=== PATIENT | female | born 1995 | race Caucasian/White ===

== ENCOUNTER → 2021-08-15 09:01 | Outpatient (CLI) | payer OTHER, SELFPAY ==
[2021-08-15 09:32] LABS: COVID19 -Nasal RAPID Negative (Negative)
== END ==
PROVIDERS: PCP Ophthalmology; Visit Provider Obstetrics & Gynecology
DX: Z01.812 Encounter for preprocedural laboratory examination (principal); Z20.822 Contact with and (suspected) exposure to COVID-19
CPT/HCPCS: 87635

== ENCOUNTER 2021-08-18 12:27 | Day surgery (SDC) | payer OTHER, MEDICAID, SELFPAY ==
[2021-08-11 15:18] VITALS: BMI 24.1
--- NOTE | 2021-08-15 09:08 | PM.GYNHP.1 ---
History of Present Illness History of Present Illness Narrative: Alejandrina Timmons is a 26-year-old , LMP 06/20/2021 who presents today to discuss sterilization.? The patient has used both oral contraceptives and progestin secreting IUDs in the past for contraception but has decided that she absolutely positively does not wish to have anymore children and she has become uncomfortable with the idea of having synthetic hormones in her body as a form of contraception.? Other forms of contraception were discussed but she is firm in her decision for sterilization.? She understands that laparoscopic sterilization via bilateral salpingectomy is a procedure which will permanently and irreversibly make it impossible for her to bear children without the benefit of a assisted repeat technology.? After extended discussion, the patient executed a S-687 form, consent for sterilization on 06/29/2021.? She is scheduled for laparoscopic bilateral salpingectomy on the afternoon of and presents today for her scheduled surgery.. [facility] Medical History Multiple sclerosis Surgical History History of appendectomy History of tonsillectomy and adenoidectomy Social History household members: spouse and children Smoking Status: Current every day smoker Meds Home Medications and Allergies Home Medications Medication Instructions Recorded Confirmed Type acetaminophen 325 mg capsule 325 mg PO Q4-6H PRN 04/01/18 08/11/21 History (Tylenol) Allergies Allergy/AdvReac Type Severity Reaction Status Date / Time latex [LATEX] Allergy Intermediate swelling Verified 06/29/21 09:11 of hands when put latex gloves on. Sulfa (Sulfonamide Allergy Intermediate rash and Verified 06/29/21 09:11 Antibiotics) body turs [SULFA (SULFONAMIDE beet red ANTIBIOTICS)] sumatriptan [SUMATRIPTAN] AdvReac Mild head feels Verified 06/29/21 09:11 like it is burning Exam Const General: cooperative, healthy appearing and well developed Nutritional Appearance: average body habitus Orientation: alert and oriented x3 HENMT Head: normal to inspection, atraumatic and abrasion Ears: hearing grossly normal bilaterally Nose: external nose normal Face and sinus: normal facial exam Mouth: oral mucosae normal Teeth and gingiva: dentition normal Throat: posterior oropharynx normal Eyes General: appearance normal, both eyes and all related structures Conjunctivae: conjunctivae normal Sclera: sclerae normal Cornea: corneas normal EOM: EOM intact bilaterally Neck Neck: normal visual inspection, supple and No lymphadenopathy Thyroid: thyroid normal Resp Effort & Inspection: normal respiratory effort and able to speak in complete sentences Auscultation: clear to auscultation bilaterally Cardio Rate: regular rate Rhythm: regular rhythm Heart Sounds: S1 normal, S2 normal and no murmurs GI Inspection: normal to inspection Palpation: soft and no hepatosplenomegaly Auscultation: normal bowel sounds General: other (Deferred) Skin General: no rashes or lesions noted Neuro General: patient alert, patient awake and patient oriented x3 Extrem General: no calf tenderness Psych Appearance: grossly normal Mental Status: mental status grossly normal Speech and Movement: speech and movement normal Mood: congruent mood Affect: normal affect Attitude: cooperative Thought Process: normal Thought Content: normal Judgment: judgment good Assessment & Plan Assessment and plan (1) Request for sterilization: Status: Acute Plan: The patient was counseled regarding alternatives, risks, benefits, and potential complications associated with laparoscopic bilateral salpingectomy.? She understands that this procedure is one which will result in her permanently and irreversibly being unable to bear children without the benefit of assisted reproductive technology.? Furthermore she understands that this procedure can fail approximately 2 times out of a 1000 procedures and should failure occur the risk of ectopic is significant.? With full understanding of the above, she desires to proceed and a written consent was executed, signed, and witnessed 07/15/2021. Assessment & Plan narrative: The patient was counseled regarding alternatives, risks, benefits, and potential complications associated with laparoscopic bilateral salpingectomy.? She understands that this procedure is 1 which will result in her permanently and irreversibly being unable to bear children without the benefit of assisted reproductive technology.? Furthermore she understands that this procedure can fail approximately 2 times out of a 1000 procedures and should failure occur the risk of ectopic is significant.? With full understanding of the above, she desires to proceed and a written consent was executed, signed, and witnessed 08/15/2021. Time Spent With Patient Time with patient: less than 30 minutes Critical Care time: I spent a total of [] minutes of critical care time on this patient's care today; this time is exclusive of procedural time.
--- NOTE | 2021-08-18 | PATH_ITS ---
[facility] Accession Number: [id number] . 01 Material submitted: . fallopian tube - BILATERAL FALLOPIAN TUBES . 02 Diagnosis: Bilateral Fallopian Tubes, Bilateral Salpingectomy: Fallopian tubes x2; negative for epithelial atypia or malignancy. [facility] 08/22/2021 1434 Local . 02 Electronically signed: . Violeta Rios MD, Pathologist NPI- [id number] . 01 Gross description: . The specimen is received in formalin, labeled bilateral fallopian tubes and consists of two fallopian tube measuring 6.0 cm in length by 1.0 cm in diameter and 6.5 cm in length by 0.9 cm in diameter. The serosa is pink-purple and smooth. Sectioning reveals a page-pink mucosa and a stellate lumen measuring 0.4 cm in diameter. Machine Cage Maker sections of each fallopian tube are submitted, to include the en face margin (blue), central cross sections, and bisected fimbria, in cassettes A1-A2. ([id number]) /V 08/19/2021 1514 Local . 02 Pathologist provided ICD-10: Z30.2 . 02 CPT . 041892 Performed at: 01 [facility] [address], [place], [place] [id number] MD Jagdish Elliott MD Phone: [phone] Performed at: 02 [facility] [address] [place], [place] [id number] MD Judi Steward MD Phone: [phone]
[2021-08-18 13:13] VITALS: BP 105/72; PULSE 74; RESP 16; TEMP 36.3; O2SAT 100; BMI 24.1
--- NOTE | 2021-08-18 13:27 | PM.PREOP ---
Pre-operative Note COVID-19 COVID-19 status: Negative Result date/Date tested (Pos, Neg/Pending): 08/17/21 Interval Note History & Physical reviewed/Exam performed by Physician: Yes Changes to H&P: No
[2021-08-18] MEDS: LACTATED RINGERS 1,000 ML 42 ML IV (13:28)
--- NOTE | 2021-08-18 14:44 | SUR.OPER ---
Lithotomy on padded OR bed, head on pillow, arms secured on padded arm boards at <90 degrees abduction. Legs secured in padded yellow fins stirrups.
[2021-08-18] MEDS: BUPIVACAINE 0.5% (PF) 30 ML, EPINEPHrine 0.15 MG INJ (14:51)
[2021-08-18 15:10] VITALS: BP 109/59; PULSE 74; RESP 20; TEMP 36.1; O2SAT 100
[2021-08-18 15:15] VITALS: BP 121/76; PULSE 72; RESP 18; O2SAT 100
--- NOTE | 2021-08-18 15:17 | P.OP_ITS ---
Operative Date/Time/Diagnoses Date of procedure: 08/18/21 Time of procedure: 14:45 Pre-op diagnosis: Request for sterilization Post-op diagnosis: same Procedure & Clinicians Procedure: Procedures Operation Date: 08/18/21 14:30 Actual Procedure Side Surgeon p Laparoscopic Salpingectomy Bilateral Peter Nino MD Indications: Alejandrina Timmons is a 26-year-old , LMP 06/20/2021 who presents today to discuss sterilization.? The patient has used both oral contraceptives and progestin secreting IUDs in the past for contraception but has decided that she absolutely positively does not wish to have anymore children and she has become uncomfortable with the idea of having synthetic hormones in her body as a form of contraception.? Other forms of contraception were discussed but she is firm in her decision for sterilization.? She understands that laparoscopic sterilization via bilateral salpingectomy is a procedure which will permanently and irreversibly make it impossible for her to bear children without the benefit of a assisted repeat technology.? After extended discussion, the patient executed a S-687 form, consent for sterilization on 06/29/2021.? She is scheduled for laparoscopic bilateral salpingectomy on the afternoon of and presents today for her scheduled surgery. Surgeon: Peter Nino Anesthesia Type: General Operative Notes Findings: Normal pelvis. The upper abdomen and appendix are normal to laparoscopic visualization. Closure Type: primary Specimen(s): left tube and right tube Estimated blood loss (mL): 5 Blood products transfused: none Procedure in detail: With the patient under satisfactory general anesthesia in the modified dorsal lithotomy position, the perineum and abdomen were prepped and draped in the usual fashion for laparoscopic bilateral salpingectomy. A pre-surgical safety time-out was then taken in accordance with [facility] Main OR protocols. No uterine manipulator was inserted. The inferior margin of the umbilicus was then infiltrated with approximately 5 cc 0.5% Marcaine. A 1 cm vertical umbilical incision was then made through which a Veress needle was used to insufflate the abdomen with carbon dioxide. Once insufflated a 5 mm trocar and sleeve were placed through that incision and using a 5 mm scope the abdomen was visualized. Two additional 5 mm ports in the left and right mid quadrant were inserted in the usual fashion after infiltration of the tissues and skin with 0.5% Marcaine. Using in 3 puncture technique the pelvis and abdomen were thoroughly visualized and photographically documented. The right fallopian tube was then grasped at the fimbria and elevated. The PK bipolar device was then used to sequentially coagulate and divide the mesosalpinx from the if embryo very could to the cornua. Once the cornua was reached the base of the fallopian tube was coagulated and divided. That tube was then removed through one of the 5 mm ports and submitted as a pathologic specimen. Attention was then turned to the left side and the distal tube was grasped with a grasping forcep. The fimbriae ovarica was then coagulated and divided with the PK device and the process was continued all the way across the mesosalpinx on the left to the c ornua. Once the cornu was reached the base of the tube was then coagulated and divided. The left tube was then removed through one of the 5 mm ports and submitted with the other tube is a aggregate pathologic specimen. The pelvis was inspected and there was no evidence of bleeding or other abnormalities. The pneumoperitoneum was then vented and the ports removed. Each port incision was then closed with 4-0 Monocryl using inverted interrupted stitches and appropriate dressings were applied. The patient was then awakened and transferred to the PACU for a period of observation in recovery having tolerated the procedure well. There were no complications experienced an estimated blood loss was approximately 5 cc. Complications: none Post-operative Condition: stable Disposition: PACU Plan for aftercare: Routine postoperative care.
[2021-08-18] MEDS: fentaNYL 100 MCG/2 ML INJ IV ×2 (15:18→15:25)
[2021-08-18 15:20] VITALS: BP 108/67; PULSE 69; RESP 21; O2SAT 100
[2021-08-18 15:29] VITALS: BP 111/75; PULSE 75; RESP 12; O2SAT 100
[2021-08-18] MEDS: OXYCODONE/ACETAMINOPHEN 5/325 TABLET 1 TAB PO ×2 (15:32→16:04)
[2021-08-18 16:08] VITALS: BP 101/65; PULSE 60; RESP 16; O2SAT 100
== END 2021-08-18 16:12 | disposition home or self-care (01) ==
PROVIDERS: PCP Ophthalmology; Referring Provider Obstetrics & Gynecology; Visit Provider Obstetrics & Gynecology
PROC: 0UT74ZZ Resection of Bilateral Fallopian Tubes, Percutaneous Endoscopic Approach (ICD-10-PCS; CPT 58661; principal; 2021-08-18 14:30)
DX: Z30.2 Encounter for sterilization (principal); G35 Multiple sclerosis; F17.210 Nicotine dependence, cigarettes, uncomplicated
CPT/HCPCS: 58661; 81025; J0171; J1100; J1885; J2250; J2405; J2704; J3010

== ENCOUNTER → 2022-04-12 07:46 | Outpatient (CLI) | payer OTHER, MEDICAID, SELFPAY ==
--- NOTE | 2022-04-12 07:47 | DI.RAD.S_ITS ---
PROCEDURE: XR LUMBAR SPINE MIN 4V INDICATIONS: BACK PAIN TECHNIQUE: 5 views of the lumbar spine were acquired, including bilateral oblique views. COMPARISON: [facility], RG, XR L-SPINE 2-3V, 02/01/2022, 10:41. FINDINGS: Bones: 5 nonrib-bearing vertebrae are present. There is normal bony alignment. No vertebral body compression fractures. No suspicious bony lesions. Minimal L4-L5 and L5-S1 degenerative disc changes. Soft tissues: Overlying bowel gas pattern is normal. No suspicious soft tissue calcifications. Oblique images: No pars defects. IMPRESSION: Minimal L4-L5 and L5-S1 degenerative disc disease. No acute osseous lesion. If symptoms and/or clinical suspicion for pathology persists, evaluation with MRI should be considered for further assessment. Dictated by: Carmen Bergeron MD, PhD on 04/12/2022 at 15:13 Approved by: Carmen Bergeron MD, PhD on 04/12/2022 at 15:14
== END ==
PROVIDERS: PCP Family Medicine; Referring Provider Physical Medicine & Rehabilitation; Visit Provider Physical Medicine & Rehabilitation
DX: M51.36 Other intervertebral disc degeneration, lumbar region (principal); M51.37 Other intervertebral disc degeneration, lumbosacral region; M47.816 Spondylosis without myelopathy or radiculopathy, lumbar region; M47.817 Spondylosis without myelopathy or radiculopathy, lumbosacral region; G35 Multiple sclerosis; M54.9 Dorsalgia, unspecified
CPT/HCPCS: 72110; 99214

== ENCOUNTER → 2022-05-15 09:42 | Outpatient (CLI) | payer OTHER, MEDICAID, SELFPAY ==
[2022-05-15 12:15] LABS: COVID19 -Nasal RAPID Negative (Negative)
== END ==
PROVIDERS: PCP Family Medicine; Visit Provider Physical Medicine & Rehabilitation
DX: Z20.822 Contact with and (suspected) exposure to COVID-19 (principal)
CPT/HCPCS: 87635; C9803

== ENCOUNTER 2022-05-16 08:49 | Outpatient (CLI) | payer OTHER, MEDICAID, SELFPAY ==
[2022-05-16] VITALS (9 sets, daily range): BP systolic 99–118; BP diastolic 62–76; PULSE 65–81; RESP 14–21; TEMP 36.1; O2SAT 98–100
--- NOTE | 2022-05-16 08:50 | DI.RAD.S_ITS ---
PROCEDURE: PAIN L/SI FACET INJ/BLK 1STL INDICATIONS: SPONDYLOSIS COMPARISON: [facility], CR, XR LUMBAR SPINE MIN 4V, 04/12/2022, 7:40. FINDINGS: Fluoroscopic spot filming was performed to verify placement of spinal needles on the left at the L4, L5, and S1 levels, as labeled on the films. Appropriate location of the needle tips was confirmed by injection of iodinated contrast. IMPRESSION: Intraprocedural examination demonstrating appropriate positions of the needles. Dictated by: Prosper Mejia M.D. on 05/16/2022 at 13:02 Approved by: Prosper Mejia M.D. on 05/16/2022 at 13:04
[2022-05-16] MEDS: MIDAZOLAM 2 MG/2 ML VIAL IV ×2 (10:24→10:30)
[2022-05-16] MEDS: BUPIVACAINE 0.5% (PF) VIAL 5 ML INJ (10:30)
[2022-05-16] MEDS: IOPAMIDOL 15 ML VIAL 3 ML INJ (10:32)
--- NOTE | 2022-05-16 10:38 | PM.PROC.IR.1 ---
Date/Time/Diagnoses Date of procedure: 05/16/22 Time of procedure: 10:38 Pre-procedure diagnosis: 1. FACET ARTHROPATHY Post-procedure diagnosis: same Procedure Notes Procedure: 1. Left L4, L5 and S1 MB BLOCKS LA Indications: Alejandrina is referred by Dr. Basurto for treatment of Left Axial LBP. Physician: Leon Juarez Total Fluoroscopy time (seconds): 6 Total sedation minutes: 11 Complications: none Procedure in detail & Post-procedure care: DESCRIPTION OF PROCEDURE Fluoroscopically guided, contrast-controlled left L4, L5 and S1 medial branch blocks with 0.5cc of 0.5% Marcaine. Following review of allergy and review of potential side effects and complications, including, but not necessarily limited to, infection, allergic reaction, local tissue breakdown, nerve injury, paralysis, stroke and possible , the patient indicated that the patient understood and agreed to proceed. An informed consent document was signed by the patient, witnessed by a nurse, and placed in the patient's chart. After review of previous anaesthesic history and IV conscious sedation the patient was deemed safe to proceed with today?s procedure with IV conscious sedation as ASA class II designation. Safety time-out was performed to confirm patient ID, procedure to be performed and site of procedure. IV sedation was accomplished with a combination of 4mg of Versed was administered by the RN after DO order, titrated to patient comfort during the course of the procedure while the patient remained responsive to all verbal commands. In the prone position, following sterile prep and drape of the lumbar region, the left L4, L5 and S1 anatomical location of the medial branch of the dorsal ramus was identified fluoroscopically. Subsequently an anesthetic skin wheal using 1% lidocaine solution was initiated at each of the anatomical spots. Subsequently then a 22-gauge 3.5-inch spinal needle was atraumatically introduced and advanced under fluoroscopic guidance at each of the corresponding sites at the left L4, L5 and S1 MB. After negative aspiration, 0.2cc of Isovue 200 was injected, confirming placement without vascular or intrathecal uptake. Subsequently, then 0.5cc of 0.5% Marcaine solution was injected at each of the corresponding sites at the left L4, L5 and S1 medial branch locations. The patient tolerated the procedure well without signs or symptoms of complications. The patient tolerated the procedure well without signs or symptoms of complications prior to transfer to the recovery area continued monitoring without incident. Post-procedure, the patient was monitored initiating provocative activities to measure the amount of relief from block of the facetogenic pain. The patient reported a VAS of 7 prior to the procedure and a post-procedure VAS of 1. It has been a pleasure to assist in the diagnostic and therapeutic care of your patient. POST OP INSTRUCTIONS The patient was provided with a Pain Log to complete over the next several hours and subsequent days prior to the patient's follow up with the ordering physician. If the patient has post adoption coordinator relief to the solution applied, then they may be a candidate for medial branch rhizotomy. The patient is aware, was provided, once again, with a Pain Log and will follow up with the referring physician for review and clinical correlation.
== END 2022-05-16 11:05 | disposition home or self-care (01) ==
LOC: RAD 08:50
PROVIDERS: PCP Family Medicine; Referring Provider Physical Medicine & Rehabilitation; Visit Provider Physical Medicine & Rehabilitation
DX: M47.816 Spondylosis without myelopathy or radiculopathy, lumbar region (principal); M47.817 Spondylosis without myelopathy or radiculopathy, lumbosacral region
CPT/HCPCS: 64493; 64494; 99152; J2250